=== PATIENT | male | born 1960 | race Caucasian/White ===

== ENCOUNTER → 2024-02-14 | Outpatient (REF) | payer BC | LOC: M SFHCRHEU 16:18 | PROVIDERS: ATTEND Internal Medicine Rheumatology | DX: L40.50 Arthropathic psoriasis, unspecified (principal) ==

== ENCOUNTER → 2024-11-02 | Outpatient (REF) | payer BC | LOC: M SFHCDERM 10:19 | PROVIDERS: ATTEND Nurse Practitioner Family | DX: L40.0 Psoriasis vulgaris (principal) ==